=== PATIENT | male | born 1990 | race Caucasian/White ===

== ENCOUNTER 2019-11-22 13:01 | Emergency (ER) | payer SELFPAY ==
[2019-11-22 13:31] VITALS: BP 120/82
--- NOTE | 2019-11-22 14:43 | UC ---
Dental HPI - HPI Summary HPI Summary: He has had pain in his upper right and left jaw at the last tooth each side. No systemic symptoms. It has been bothering him on and off for about a week. Eating really sets it off. - History of Current Complaint Chief Complaint: UCDentalProblem Stated Complaint: TOOTH PAIN Time Seen by Provider: 11/22/19 14:33 Hx Obtained From: Patient Onset/Duration: Gradual Onset Severity: Severe Pain Intensity: 10 Aggravating Factor(s): Chewing Alleviating Factor(s): OTC Meds - Allergies/Home Medications Allergies/Adverse Reactions: Allergies Allergy/AdvReac Type Severity Reaction Status Date / Time No Known Allergies Allergy Verified 11/22/19 13:25 Home Medications: Home Medications NK [No Home Medications Reported] 11/22/19 [History Confirmed 11/22/19] PMH/Surg Hx/FS Hx/Imm Hx Previously Healthy: Yes - Surgical History Surgical History: Yes Surgery Procedure, Year, and Place: Left arm surgery - Social History Alcohol Use: None Substance Use Type: None Smoking Status (MU): Light Every Day Tobacco Smoker Review of Systems All Other Systems Reviewed And Are Negative: Yes Constitutional: Positive: Negative Skin: Positive: Negative ENT: Positive: Dental Pain Neurological: Positive: Negative Physical Exam - Summary Physical Exam Summary: He is nontoxic in appearance with stable vitals. Triage Information Reviewed: Yes Appearance: Well-Appearing, No Pain Distress Vital Signs: Initial Vital Signs Temp 97.7 F 11/22/19 13:26 Pulse 82 11/22/19 13:26 Resp 18 11/22/19 13:26 BP 120/82 11/22/19 13:26 Pulse Ox 100 11/22/19 13:26 Vital Signs Reviewed: Yes Eye Exam: Normal ENT: Positive: Normal ENT inspection Dental: Positive: Gross Decay/Caries @ - Last left upper molar and ? right. No cellulitis or abscess. Neck exam: Normal Neck: Positive: No Lymphadenopathy Dental Complaint Course/Dx - Course Course Of Treatment: I see caries but no other sign of abscess or cellulitis. I will treat him with PCN and recommend ibuprofen and F/U with a dentist. - Differential Dx/Diagnosis Provider Diagnosis: Tooth ache Discharge ED - Sign-Out/Discharge Documenting (check all that apply): Patient Departure All imaging exams completed and their final reports reviewed: No Studies - Discharge Plan Condition: Stable Disposition: HOME Patient Education Materials: Toothache (ED) Referrals: No Primary Care Phys,NOPCP [Primary Care Provider] - Additional Instructions: Please F/U with a dentist as you have caries. - Billing Disposition and Condition Condition: STABLE Disposition: Home
== END 2019-11-22 15:03 | disposition home or self-care (01) ==
LOC: UCEAST 13:01
DX: K08.89 Other specified disorders of teeth and supporting structures (principal); F17.290 Nicotine dependence, other tobacco product, uncomplicated
CPT/HCPCS: 99202; G0463